=== PATIENT | female | born 1970 ===

== ENCOUNTER → 2024-10-13 06:12 | Outpatient (CLI) | payer OTHER ==
[2024-10-13 07:34] LABS: EOS # 0.16 (0.04-0.54); EOS % 2.6 % (0.7-7.0); HEMATOCRIT 41.9 % (34.1-44.9); HEMOGLOBIN 14.2 g/dL (11.2-15.7); LYMPH # 2.06 (1.18-3.74); LYMPH % 33.2 % (19.3-53.1); MEAN CORPUSCULAR HEMOGLOBIN 28.8 pg (25.6-32.2); MONO # 0.49 (0.24-0.82); MONO % 7.9 % (4.7-12.5); NEUT # 3.42 (1.56-6.13); NEUT % 55.1 % (34.0-71.1); PLATELET COUNT 330 K/uL (163-369); RED BLOOD COUNT 4.93 M/uL (3.93-5.22); RED CELL DISTRIBUTION WIDTH 14.2 % (11.6-14.4)
[2024-10-13 08:35] LABS: % SATURACION 26.1 % (15-50); ALBUMIN 4.3 gm/dL (3.4-5.0); BILIRUBIN TOTAL 0.82 mg/dL (0.3-1.2); CALCIUM 9.3 mg/dL (8.5-10.1); CREATININE SERUM 0.48 mg/dL (0.55-1.02); FERRITIN 40.8 NG/ML (8-252); GFR 135.81; GLOBULINA 3.5 G/DL (2.4-3.5); POTASSIUM 3.6 mEq/L (3.5-5.1); TOTAL PROTEIN 7.8 gm/dL (6.4-8.2)
[2024-10-13 13:05] LABS: FOLIC ACID > 20.00 ng/ml (4.78-20)
[2024-10-15 09:09] LABS: HOMOCYSTEINE 10.8 umol/L (0.0-14.5); TRANSFERIN 296 mg/dL (192-364)
[2024-10-15 15:12] LABS: ANTI CARDIO IGA < 9 APL U/mL (0-11); ANTI CARDIO IGG < 9 GPL U/mL (0-14); ANTI CARDIO IGM < 9 MPL U/mL (0-12)
== END | disposition home or self-care (01) ==
LOC: LAB 06:12
PROVIDERS: ATTEND Internal Medicine Hematology & Oncology
DX: D68.52 Prothrombin gene mutation (principal); K51.90 Ulcerative colitis, unspecified, without complications; I10 Essential (primary) hypertension; E11.9 Type 2 diabetes mellitus without complications; E03.8 Other specified hypothyroidism; D50.8 Other iron deficiency anemias; R79.9 Abnormal finding of blood chemistry, unspecified; R74.02 Elevation of levels of lactic acid dehydrogenase [LDH]; K76.89 Other specified diseases of liver; D68.59 Other primary thrombophilia